=== PATIENT | male | born 1945 | race Caucasian/White ===

== ENCOUNTER → 2019-02-09 18:53 | Outpatient (CLI) | payer MEDICARE, BC, SELFPAY ==
--- NOTE | 2019-02-09 | DI.MRI.S_ITS ---
PROCEDURE: MR CERVICAL SPINE WO CON INDICATIONS: RADCULOPATHY, CERVICAL REGION TECHNIQUE: Noncontrast sagittal T1 spin echo and T2 fast spin echo, sagittal STIR, foraminal oblique sagittal T2 fast spin echo, and axial gradient echo or T2 fast spin echo through the cervical spine. COMPARISON: None. FINDINGS: Image quality: Excellent. Alignment and Curvature: There is grade 1 anterolisthesis of C7 on T1. Bone Marrow: Mottled appearance throughout visualized cervical and upper thoracic spine vertebral bodies are noted. There is extensive marrow edema throughout T1 vertebral body with suggestion of infiltrative process throughout T1 vertebral body extending to the posterior elements. There is acute to subacute appearing compression deformity of T1 and up to 40% loss of T1 vertebral body height anteriorly. No other compression fracture is seen. Spinal Cord: Visualized spinal cord has normal size and signal. No cerebellar tonsillar herniation. Paraspinous Soft Tissues: No paravertebral masses. Prevertebral soft tissues are normal in thickness. C2-C3: Diffuse disc bulge and bilateral facet hypertrophic changes are noted with mild central canal stenosis and mild bilateral neuroforaminal narrowing. C3-C4: Decrease in intervertebral disc space is seen. Broad-based disc bulge and bilateral facet hypertrophic changes are noted causing moderate central canal stenosis and left worst than right bilateral neuroforaminal narrowing. C4-C5: Decrease in intervertebral disc space is seen. A broad-based disc bulge and bilateral facet hypertrophic changes are noted causing moderate central canal stenosis and left worst than right bilateral neuroforaminal narrowing. C5-C6: Decrease intervertebral disc space is seen. A broad-based disc bulge and bilateral facet hypertrophic changes are noted with mild central canal stenosis and left worst than right bilateral neuroforaminal narrowing. C6-C7: There is decreased intervertebral disc space and degenerative endplate changes. Diffuse disc bulge and bilateral facet hypertrophic changes are seen with mild central canal stenosis and bilateral neuroforaminal narrowing. C7-T1: There is retropulsion of T1 vertebral body causing [id number] central canal stenosis. Left worst in right bilateral neuroforaminal narrowing is also likely present. IMPRESSION: 1. Mottled appearance to all visualized cervical and upper thoracic spine vertebral bodies highly suspicious for metastatic bone lesions. There is suggestion of infiltrative process involving entire T1 vertebral body extending to posterior elements causing pathologic fracture of indeterminate age and up to 40% loss of T1 vertebral body height. Retropulsion of T1 posterior wall is seen causing mild to moderate central canal stenosis at this level. 2. No acute compression fracture is seen in cervical spine vertebral bodies. Degenerative disc bulge and bilateral facet hypertrophic changes are noted throughout cervical spine causing moderate to severe central canal stenosis and bilateral neuroforaminal narrowing as described above. 3. There is no Chiari malformation. No abnormal signal is seen within cervical spinal cord. Dictated by: Joseph Worthington M.D. on 02/10/2019 at 10:13 Approved by: Joseph Worthington M.D. on 02/10/2019 at 10:32
== END ==
PROVIDERS: Visit Provider Family Medicine
DX: M50.11 Cervical disc disorder with radiculopathy, high cervical region (principal); M48.02 Spinal stenosis, cervical region; M43.13 Spondylolisthesis, cervicothoracic region; M89.9 Disorder of bone, unspecified
CPT/HCPCS: 72141

== ENCOUNTER → 2019-02-23 10:36 | Outpatient (CLI) | payer MEDICARE, BC, SELFPAY ==
--- NOTE | 2019-02-23 11:23 | DI.CT.S_ITS ---
PROCEDURE: CT CHEST ABD PEL W CON INDICATIONS: Abnormal findings on diagnostic imaging TECHNIQUE: After the administration of oral and intravenous contrast, 5 mm thick sections acquired from the lung apices to the symphysis. 5 mm coronal and sagittal reformats were performed, with additional 7 mm coronal MIP reformats through the lungs. For radiation dose reduction, the following was used: automated exposure control, adjustment of mA and/or kV according to patient size. COMPARISON: [facility], MR, MR CERVICAL SPINE WO CON, 02/09/2019, 19:08. FINDINGS: Image quality: Excellent. CHEST: Lungs and pleura: No acute airspace opacities. No pleural effusions or pneumothorax. Central and peripheral airways appear patent and normal in caliber. Mediastinum: Heart size is normal. No pericardial effusion. No mediastinal or hilar adenopathy by size criteria. Thoracic aorta and central pulmonary arteries are normal in size. Esophagus is normal in caliber. No hiatal hernia. Chest wall: No axillary or supraclavicular adenopathy by size criteria. Thyroid gland appears normal where well seen. There is an osteolytic process involving T1 as seen on the cervical spine MRI 02/09/19. MR scanning shows a greater degree of heterogeneity of the marrow space of the low cervical and upper thoracic spine that is seen by CT scanning. T1 vertebral height reduction is again noted, mild retropulsion of the posterior border of T1 vertebral body into the spinal canal is present. An epidural mass is not associated, but the anterior spinal canal appears mildly distorted by the osseous abnormality present at T1. ABDOMEN: Solid organs: Liver is normal in size and enhancement. Gallbladder appears normal. Biliary system is non dilated. Pancreas enhances normally. Spleen is normal in size and enhancement. No adrenal nodules. Kidneys demonstrate normal size and enhancement, without hydronephrosis. Peritoneum and bowel: Bowel loops demonstrate normal wall thickness and caliber. No free fluid or air. Nodes and vessels: No retroperitoneal or mesenteric adenopathy by size criteria. Aorta and inferior vena cava are normal in size. Miscellaneous: No ventral hernias. PELVIS: Genitourinary: Bladder wall thickness is normal. Miscellaneous: No inguinal hernias or adenopathy. Bones: No suspicious bony lesions beyond that seen at T1. No lower vertebral body compression fractures. IMPRESSION: 1. Marrow space signal heterogeneity is present to a significantly greater degree on MR scanning that is identifiable on CT scanning. This may indicate a generalized marrow space disease process such as multiple myeloma. A focal plasmacytoma may be present at the T1 vertebral body as cause of the osteolytic pathologic compression fracture present in that area. The degree of distortion present at T1 involving the spinal canal and vertebral body has not appreciably worsened over the short. Time from the MR scanning 02/09/19. 2. The marrow space elsewhere an osteolytic process is not found in no primary neoplasm is identified over the chest abdomen and pelvis. A myeloproliferative disorder/neoplasm is considered a likely etiology for the abnormalities discussed above. Depending on the clinical status followup by nuclear medicine bone scan and/or PET CT scanning may be warranted. Dictated by: Pasha Gordillo M.D. on 02/23/2019 at 14:13 Approved by: Pasha Gordillo M.D. on 02/23/2019 at 14:31
== END ==
PROVIDERS: PCP Family Medicine; Visit Provider Family Medicine
DX: R93.7 Abnormal findings on diagnostic imaging of other parts of musculoskeletal system (principal); S22.010A Wedge compression fracture of first thoracic vertebra, initial encounter for closed fracture
CPT/HCPCS: 71260; 74177; Q9967

== ENCOUNTER → 2020-07-30 12:28 | Outpatient (CLI) | payer MEDICARE, BC, SELFPAY ==
[2020-07-30 20:02] LABS: Bacteria Urine None Seen; WBC Urine None Seen (0-5/HPF)
[2020-07-30 20:13] LABS: Appearance Urine UA CLEAR; Bilirubin Urine UA NEGATIVE (NEGATIVE); Color Urine UA YELLOW; Glucose Urine UA TRACE g/dL (Negative); Hematocrit 36.1 % (41-53); Hemoglobin 12.3 g/dL (13.5-17.5); Ketones Urine UA NEGATIVE (NEGATIVE); Leukocyte Esterase Urine UA NEGATIVE (NEGATIVE); Mean Corpuscular HGB Conc 34.1 % (30-36); Mean Corpuscular Hemoglobin 35.9 PG (26-34); Mean Corpuscular Volume 105.1 fL (80-100); Nitrite Urine UA NEGATIVE (Negative); Occult Blood Urine UA 2+ (Negative); Platelet Count 108 X10^3/uL (150-400); Protein Urine UA TRACE (Negative); Red Blood Cell Count 3.44 X10^6/uL (4.5-5.9); Red Cell Distribution Width 15.6 % (11.6-14.8); Urobilinogen Urine UA 0.2 E.U./dL (0.2); White Blood Cell Count 4.3 X10^3/uL (4.5-11.0); pH Urine UA 5.5 (4.5-8.0)
[2020-07-30 20:22] LABS: Alanine Aminotransferase 14 IU/L (<50); Albumin 3.3 g/dL (3.5-5.0); Albumin Globulin Ratio 1.6 (1.0-2.8); Alkaline Phosphatase 74 U/L (38-126); Aspartate Aminotransferase 18 IU/L (17-59); BUN Creatinine Ratio 15.8 (6-22); Bilirubin Total 0.5 mg/dL (0.2-1.3); Blood Urea Nitrogen 19 mg/dL (9-20); Calcium 8.5 mg/dL (8.4-10.2); Carbon Dioxide 23 mmol/L (22-32); Chloride 103 mmol/L (98-107); Estimated Glomerular Filt Rate 59.3 mL/min (>60); Globulin 2.1 g/dL (1.7-4.1); Glucose 122 mg/dL (80-110); HEMOLYSIS < 15 (0-50); Sodium 135 mmol/L (137-145); Total Protein 5.4 g/dL (6.3-8.2)
[2020-07-30 20:33] LABS: Hyaline Casts Urine 1-5/LPF; RBC Urine 1-5/HPF (0-5/HPF); Squamous Epithelial Cell Urine 0-1 /HPF (0-5/HPF)
[2020-07-30 21:09] LABS: Neutrophils Absolute Manual 2451 /uL (3000-5900); Total Cells Counted 100
[2020-07-30 21:10] LABS: Macrocytosis 1+; Platelet Estimate Decreased on smear; Platelet Morphology Comment NOTE
[2020-07-30 21:17] LABS: COVID19 - ORCAS (NP or Nasal) Negative (Negative)
== END ==
PROVIDERS: PCP Family Medicine; Visit Provider Physician Assistant
DX: R50.9 Fever, unspecified (principal); Z20.822 Contact with and (suspected) exposure to COVID-19; R31.9 Hematuria, unspecified; R35.1 Nocturia
CPT/HCPCS: 80053; 81001; 85025; U0003

== ENCOUNTER → 2020-08-01 08:36 | Outpatient (CLI) | payer MEDICARE, BC, SELFPAY ==
[2020-08-01 20:14] LABS: Hematocrit 37.3 % (41-53); Hemoglobin 12.7 g/dL (13.5-17.5); Mean Corpuscular HGB Conc 34.1 % (30-36); Mean Corpuscular Hemoglobin 35.7 PG (26-34); Mean Corpuscular Volume 104.9 fL (80-100); Platelet Count 124 X10^3/uL (150-400); Red Blood Cell Count 3.56 X10^6/uL (4.5-5.9); Red Cell Distribution Width 15.8 % (11.6-14.8); White Blood Cell Count 5.1 X10^3/uL (4.5-11.0)
[2020-08-01 20:18] LABS: Add Manual Diff / Slide Review YES
[2020-08-01 20:19] LABS: Alanine Aminotransferase 19 IU/L (<50); Albumin 3.7 g/dL (3.5-5.0); Albumin Globulin Ratio 1.7 (1.0-2.8); Alkaline Phosphatase 79 U/L (38-126); Aspartate Aminotransferase 21 IU/L (17-59); Bilirubin Total 0.5 mg/dL (0.2-1.3); Blood Urea Nitrogen 24 mg/dL (9-20); Calcium 8.7 mg/dL (8.4-10.2); Carbon Dioxide 25 mmol/L (22-32); Chloride 102 mmol/L (98-107); Estimated Glomerular Filt Rate 59.3 mL/min (>60); Globulin 2.2 g/dL (1.7-4.1); Glucose 109 mg/dL (80-110); HEMOLYSIS < 15 (0-50); Potassium 4.3 mmol/L (3.4-5.1); Sodium 137 mmol/L (137-145); Total Protein 5.9 g/dL (6.3-8.2)
[2020-08-01 20:53] LABS: Neutrophils Absolute Manual 3315 /uL (3000-5900); Platelet Estimate Decreased on smear; Total Cells Counted 100
[2020-08-01 20:54] LABS: Macrocytosis 1+
== END ==
PROVIDERS: PCP Family Medicine; Visit Provider Physician Assistant
DX: R50.9 Fever, unspecified (principal); C90.00 Multiple myeloma not having achieved remission
CPT/HCPCS: 80053; 85007; 85025; 87086

== ENCOUNTER → 2020-08-02 10:18 | Outpatient (CLI) | payer MEDICARE, OTHER, SELFPAY ==
[2020-08-06 14:23] LABS: Fecal Immunochemical Test Negative (Negative)
== END ==
PROVIDERS: PCP Family Medicine; Visit Provider Physician Assistant
DX: R79.9 Abnormal finding of blood chemistry, unspecified (principal)
CPT/HCPCS: 82274

== ENCOUNTER 2020-08-02 15:06 | Inpatient (IN) | payer MEDICARE, BC, SELFPAY ==
[2020-08-02] VITALS (12 sets, daily range): BP systolic 113–180; BP diastolic 57–78; PULSE 76–103; RESP 12–24; TEMP 36.8–38.7; O2SAT 95–98; BMI 24.3
--- NOTE | 2020-08-02 15:30 | ED_ITS ---
HPI - General Adult General Chief complaint: Fever Stated complaint: COUGH FEVER Time Seen by Provider: 08/02/20 15:30 Source: patient Mode of arrival: Ambulatory History of Present Illness HPI narrative: 75-year-old gentleman with a history of multiple myeloma who is 9 months post stem cell transplant. He continues on Revlimid for treatment. He is followed at the [facility] in [place]. For the last 6 days he has been having increasing fatigue, myalgias and fevers. He has had a mild cough with increasing sputum production over the last 48 hours. Fevers as high as 104. Today there were reports of slightly altered mental status. They were seen on [facility] yesterday he has had 2-urine samples, negative COVID test and negative strep test. He was started on Levaquin p.o. yesterday and has taken a single dose. Today he continues to worsen with again, fevers to 104?. He presents to the ER for further evaluation. He reports no headache, neck pain, palpitations, chest pain, abdominal pain, lower extremity edema. No diarrhea and no skin changes to worry about cellulitis. Related Data Previous Rx's Medication Instructions Recorded levofloxacin 500 mg tablet 500 mg PO DAILY #7 tab 08/01/20 Allergies Allergy/AdvReac Type Severity Reaction Status Date / Time No Known Drug Allergies Allergy Unverified 08/02/20 15:25 Review of Systems Review of Systems Narrative: Remainder of review is unremarkable Patient History Medical History Anticoagulated Hypertension Multiple myeloma Social History Smoking Status: Former smoker Smoking Status: Former smoker alcohol intake frequency: 3 or more drinks per day Substance Use Type: does not use Exam Narrative Exam Narrative: General: Flushed but in no acute distress. Able to give a complete and coherent history. Well-nourished well-developed HEENT: Moist mucous membranes, normal sclera with reactive pupils, Neck: No JVD, supple, no nuchal rigidity Respiratory: Lungs with increased rhonchi in the left lung field without overt consolidated findings or wheeze. Full and symmetrical air movement Cardiac: Regular rate and rhythm, 3/6 systolic ejection murmur, no bruits Abdomen: Soft, nontender, good bowel tones, no flank pain Skin: Warm and dry, no rashes Neurologic: Grossly neurologically intact with no obvious asymmetries or ab normalities Extremities: No trauma, well perfused Psych: Cooperative, appropriate insight and affect Initial Vital Signs Initial Vital Signs: Vital Signs Temperature 101.7 F H 08/02/20 15:21 Pulse Rate 103 H 08/02/20 15:21 Respiratory Rate 12 08/02/20 15:21 Blood Pressure 180/78 H 08/02/20 15:21 Pulse Oximetry 98 08/02/20 15:21 Course Orders Ordered: ED Orders 08/02/20 15:31 XR chest 1V Stat Urinalysis and Microscopic Stat 08/02/20 15:35 Respiratory Panel (Film Array) Stat 08/02/20 16:02 Blood Culture Stat 08/02/20 16:07 Complete Blood Count AUTO DIFF Stat Comprehensive Metabolic Panel Stat Lactate (Lactic Acid) Stat Procalcitonin Stat Troponin & CK Cardiac Panel Stat 08/02/20 16:15 EKG-12 Lead Stat Discontinued Medications Acetaminophen (Acetaminophen 325 Mg Tablet) 975 mg PO NOW ONE Stop: 08/02/20 15:32 Last Admin: 08/02/20 15:52 Dose: 975 mg Documented by: NAVEEN Sodium Chloride (Normal Saline 0.9%) 2,245.29 mls @ 748.43 mls/hr 30 ml/kg infuse over 3 hr (2245.29 ml) IV NOW ONE Stop: 08/02/20 18:30 Last Admin: 08/02/20 16:11 Dose: 748.43 mls/hr Documented by: NAVEEN Meropenem 1 gm/ Sodium (Chloride) 100 mls @ 200 mls/hr IV NOW ONE Stop: 08/02/20 15:32 Last Infusion: 08/02/20 16:50 Dose: 0 mls/hr Documented by: Admin: 08/02/20 16:15 Dose: 200 mls/hr Documented by: NAVEEN Vancomycin HCl (Vancomycin) 1,000 mg in 200 mls @ 200 mls/hr IV NOW ONE Stop: 08/02/20 16:30 Last Infusion: 08/02/20 18:15 Dose: 0 mls/hr Documented by: Admin: 08/02/20 16:48 Dose: 200 mls/hr Documented by: NAVEEN Vital Signs Vital signs: Vital Signs - 8 hr 08/02/20 15:21 08/02/20 16:18 08/02/20 16:21 Temperature 101.7 F H Pulse Rate 103 H 99 H 96 H Respiratory Rate 12 24 20 Blood Pressure 180/78 H 128/60 Pulse Oximetry 98 98 98 08/02/20 16:30 08/02/20 17:00 08/02/20 17:30 Temperature Pulse Rate 88 78 76 Respiratory Rate 24 24 Blood Pressure 118/59 L 113/60 116/57 L Pulse Oximetry 97 97 97 08/02/20 18:00 08/02/20 18:13 Temperature 98.3 F Pulse Rate 76 Respiratory Rate Blood Pressure 121/61 Pulse Oximetry 97 Medical Decision Making Medical Records Medical records reviewed: Yes I reviewed the patient's medical records. Lab Data Lab results reviewed: Yes I reviewed the patient's lab results. Result diagrams: 08/02/20 16:07 08/02/20 16:07 Labs: Lab Results 08/02/20 08/02/20 08/02/20 Range/Units 15:35 16:07 16:07 WBC 3.4 L (4.5-11.0) X10^3/uL RBC 3.57 L (4.5-5.9) X10^6/uL Hgb 12.5 L (13.5-17.5) g/dL Hct 37.3 L (41-53) % MCV 104.7 H (80-100) fL MCH 35.0 H (26-34) PG MCHC 33.4 (30-36) % RDW 15.2 H (11.6-14.8) % Plt Count 111 L (150-400) X10^3/uL Neut % (Auto) 67.5 (50-75) % Lymph % (Auto) 20.8 L (25-40) % Orange % (Auto) 10.8 (3-14) % Eos % (Auto) 0.5 L (2-4) % Baso % (Auto) 0.4 (0-2) % Neut # (Auto) 2300 (0098-1864) /uL Lymph # (Auto) 700 L (0877-7383) /uL Orange # (Auto) 400 (0-900) /uL Eos # (Auto) 0 (0-450) /uL Baso # (Auto) 0 (0-100) /uL Sodium 134 L (137-145) mmol/L Potassium 3.8 (3.4-5.1) mmol/L Chloride 102 (98-107) mmol/L Carbon Dioxide 23 (22-32) mmol/L BUN 23 H (9-20) mg/dL Creatinine 1.24 (0.66-1.25) mg/dL Estimated GFR 57.1 L (>60) mL/min BUN/Creatinine Ratio 18.5 (6-22) Glucose 107 (80-110) mg/dL Lactate (0.7-2.1) mmol/L Calcium 8.2 L (8.4-10.2) mg/dL Total Bilirubin 0.4 (0.2-1.3) mg/dL AST 22 (17-59) IU/L ALT 23 (<50) IU/L Alkaline Phosphatase 84 (38-126) U/L Total Creatine Kinase 25 L (55-170) U/L CK-MB (CK-2) TNP CK-MB (CK-2) Rel Index TNP Troponin I < 0.012 (0.01-0.034) ng/mL Total Protein 6.2 L (6.3-8.2) g/dL Albumin 3.5 (3.5-5.0) g/dL Globulin 2.7 (1.7-4.1) g/dL Albumin/Globulin Ratio 1.3 (1.0-2.8) Procalcitonin 0.29 (<0.5) ng/mL Chlamy pneumoniae PCR Not detected (Not Detect) Adenovirus (PCR) Not detected (Not Detect) B. pertussis DNA (PCR) Not detected (Not Detecte) B.parapertussis DNA PCR Not detected (Not Detecte) Coronavirus OC43 (PCR) Not detected (Not Detect) Coronavirus HKU1 (PCR) Not detected (Not Detect) Coronavirus 229E (PCR) Not detected (Not Detect) SARS-CoV-2 (PCR) Not detected (Not Detecte) Coronavirus NL63 (PCR) Not detected (Not Detect) Human Metapneumovir PCR Not detected (Not Detect) Influenza Type A (PCR) Not detected (Not Detect) Influenza Type B (PCR) Not detected (Not Detect) M. pneumoniae (PCR) Not detected (Not Detect) Parainfluenza 1 (PCR) Not detected (Not Detect) Parainfluenza 2 (PCR) Not detected (Not Detect) Parainfluenza 3 (PCR) Not detected (Not Detect) Parainfluenza 4 (PCR) Not detected (Not Detect) RSV (PCR) Not detected (Not Detect) Entero/Rhino (PCR) Not detected (Not Detect) 08/02/20 Range/Units 16:07 WBC (4.5-11.0) X10^3/uL RBC (4.5-5.9) X10^6/uL Hgb (13.5-17.5) g/dL Hct (41-53) % MCV (80-100) fL MCH (26-34) PG MCHC (30-36) % RDW (11.6-14.8) % Plt Count (150-400) X10^3/uL Neut % (Auto) (50-75) % Lymph % (Auto) (25-40) % Orange % (Auto) (3-14) % Eos % (Auto) (2-4) % Baso % (Auto) (0-2) % Neut # (Auto) (3515-5879) /uL Lymph # (Auto) (1069-8051) /uL Orange # (Auto) (0-900) /uL Eos # (Auto) (0-450) /uL Baso # (Auto) (0-100) /uL Sodium (137-145) mmol/L Potassium (3.4-5.1) mmol/L Chloride (98-107) mmol/L Carbon Dioxide (22-32) mmol/L BUN (9-20) mg/dL Creatinine (0.66-1.25) mg/dL Estimated GFR (>60) mL/min BUN/Creatinine Ratio (6-22) Glucose (80-110) mg/dL Lactate 1.3 (0.7-2.1) mmol/L Calcium (8.4-10.2) mg/dL Total Bilirubin (0.2-1.3) mg/dL AST (17-59) IU/L ALT (<50) IU/L Alkaline Phosphatase (38-126) U/L Total Creatine Kinase (55-170) U/L CK-MB (CK-2) CK-MB (CK-2) Rel Index Troponin I (0.01-0.034) ng/mL Total Protein (6.3-8.2) g/dL Albumin (3.5-5.0) g/dL Globulin (1.7-4.1) g/dL Albumin/Globulin Ratio (1.0-2.8) Procalcitonin (<0.5) ng/mL Chlamy pneumoniae PCR (Not Detect) Adenovirus (PCR) (Not Detect) B. pertussis DNA (PCR) (Not Detecte) B.parapertussis DNA PCR (Not Detecte) Coronavirus OC43 (PCR) (Not Detect) Coronavirus HKU1 (PCR) (Not Detect) Coronavirus 229E (PCR) (Not Detect) SARS-CoV-2 (PCR) (Not Detecte) Coronavirus NL63 (PCR) (Not Detect) Human Metapneumovir PCR (Not Detect) Influenza Type A (PCR) (Not Detect) Influenza Type B (PCR) (Not Detect) M. pneumoniae (PCR) (Not Detect) Parainfluenza 1 (PCR) (Not Detect) Parainfluenza 2 (PCR) (Not Detect) Parainfluenza 3 (PCR) (Not Detect) Parainfluenza 4 (PCR) (Not Detect) RSV (PCR) (Not Detect) Entero/Rhino (PCR) (Not Detect) Imaging Data Chest x-ray: Radiologist's Impression: FINDINGS: Surgical changes and devices: None. Lungs and pleura: Left lower lobe infiltrate, increased since 08/01/2020, consistent with worsening of pneumonia. No pleural effusions or pneumothorax. Mediastinum: Mediastinal contours appear normal. Heart size is normal. Bones and chest wall: No suspicious bony lesions. Overlying soft tissues appear unremarkable. IMPRESSION: Worsening of left lower lobe pneumonia. Dictated by: Juan Carlos Hernandez M.D. on 08/02/2020 at 17:20 ECG Data Attestation: I personally reviewed and interpreted this ECG as follows: Interpretation: Sinus rhythm at 95 Occasional PVC Normal axis, normal intervals No acute ischemic changes MDM Narrative Medical decision making narrative: 75-year-old gentleman with multiple myeloma status post stem cell transplant currently on immune suppression with developing pneumonia and fevers worsening over the last week. Chest x-ray has worsened from yesterday, fevers have increased since yesterday. He started a single dose of Levaquin yesterday but came in to the emergency department for additional evaluation. He is not hypoxic but he does note significant fatigue, cough, dyspnea. At this point he is not evidencing signs of sepsis however certainly at risk for such and with temperatures to 104 and progressive disease despite outpatient treatment at least 24-48 hours of IV antibiotics is warranted. Will contact our hospitalist service for admission. 6:42 Dr Mariee accepts admission Discharge Plan Departure Patient Disposition: Admitted As Inpatient Clinical Impression: Pneumonia Qualifiers: Pneumonia type: due to unspecified organism Laterality: left Lung location: lower lobe of lung Qualified Code(s): J18.9 - Pneumonia, unspecified organism Admit Date/Time: 08/02/20 18:18 Admit Provider: Abelardo Mariee
--- NOTE | 2020-08-02 15:31 | DI.RAD.S_ITS ---
PROCEDURE: XR CHEST 1V INDICATIONS: fever TECHNIQUE: One view of the chest was acquired. COMPARISON: [facility], CT, CT CHEST ABD PEL W CON, 02/23/2019, 11:37. [facility] ([facility]), CR, XR CHEST 2V, 08/01/2020, 12:06. FINDINGS: Surgical changes and devices: None. Lungs and pleura: Left lower lobe infiltrate, increased since 08/01/2020, consistent with worsening of pneumonia. No pleural effusions or pneumothorax. Mediastinum: Mediastinal contours appear normal. Heart size is normal. Bones and chest wall: No suspicious bony lesions. Overlying soft tissues appear unremarkable. IMPRESSION: Worsening of left lower lobe pneumonia. Dictated by: Juan Carlos Hernandez M.D. on 08/02/2020 at 17:20 Approved by: Juan Carlos Hernandez M.D. on 08/02/2020 at 17:21
[2020-08-02] MEDS: ACETAMINOPHEN 325 MG TABLET 975 MG PO (15:52)
[2020-08-02] MEDS: SODIUM CHLORIDE 0.9% 2,245.29 ML 748.43 ML IV (16:11)
[2020-08-02] MEDS: MEROPENEM 1 GM in SODIUM CHLORIDE 0.9% 100 ML 200 ML IV (16:15)
[2020-08-02 16:20] LABS: Add Manual Diff / Slide Review NO; Basophils Absolute Auto 0 /uL (0-100); Basophils Percent Auto 0.4 % (0-2); Eosinophils Absolute Auto 0 /uL (0-450); Eosinophils Percent Auto 0.5 % (2-4); Hematocrit 37.3 % (41-53); Hemoglobin 12.5 g/dL (13.5-17.5); Lymphocytes Absolute Auto 700 /uL (1100-4500); Lymphocytes Percent Auto 20.8 % (25-40); Mean Corpuscular HGB Conc 33.4 % (30-36); Mean Corpuscular Volume 104.7 fL (80-100); Monocytes Absolute Auto 400 /uL (0-900); Monocytes Percent Auto 10.8 % (3-14); Neutrophils Absolute Auto 2300 /uL (1500-7000); Neutrophils Percent Auto 67.5 % (50-75); Platelet Count 111 X10^3/uL (150-400); Red Blood Cell Count 3.57 X10^6/uL (4.5-5.9); Red Cell Distribution Width 15.2 % (11.6-14.8); White Blood Cell Count 3.4 X10^3/uL (4.5-11.0)
[2020-08-02 16:30] LABS: Lactate (Lactic Acid) 1.3 mmol/L (0.7-2.1)
[2020-08-02 16:31] LABS: Alanine Aminotransferase 23 IU/L (<50); Albumin 3.5 g/dL (3.5-5.0); Albumin Globulin Ratio 1.3 (1.0-2.8); Alkaline Phosphatase 84 U/L (38-126); Aspartate Aminotransferase 22 IU/L (17-59); BUN Creatinine Ratio 18.5 (6-22); Bilirubin Total 0.4 mg/dL (0.2-1.3); Blood Urea Nitrogen 23 mg/dL (9-20); Calcium 8.2 mg/dL (8.4-10.2); Carbon Dioxide 23 mmol/L (22-32); Chloride 102 mmol/L (98-107); Creatine Kinase 25 U/L (55-170); Estimated Glomerular Filt Rate 57.1 mL/min (>60); Globulin 2.7 g/dL (1.7-4.1); Glucose 107 mg/dL (80-110); HEMOLYSIS < 15 (0-50); Potassium 3.8 mmol/L (3.4-5.1); Sodium 134 mmol/L (137-145); Total Protein 6.2 g/dL (6.3-8.2)
[2020-08-02 16:42] LABS: Adenovirus Not Detected (Not Detect); Coronavirus 229E Not Detected (Not Detect); Coronavirus HKU1 Not Detected (Not Detect); Coronavirus NL 63 Not Detected (Not Detect); Coronavirus OC43 Not Detected (Not Detect); Human Metapneumovirus Not Detected (Not Detect); Human Rhinovirus/Enterovirus Not Detected (Not Detect); Influenza A Not Detected (Not Detect); SARS- CoV-2 Not Detected (Not Detecte)
[2020-08-02 16:43] LABS: Troponin I < 0.012 ng/mL (0.01-0.034)
[2020-08-02 16:43] LABS: B. parapertussis Not Detected (Not Detecte); Bordetella pertussis Not Detected (Not Detecte); Chlamydophila pneumoniae Not Detected (Not Detect); Influenza B Not Detected (Not Detect); Mycoplasma pneumoniae Not Detected (Not Detect); Parainfluenza Virus 1 Not Detected (Not Detect); Parainfluenza Virus 2 Not Detected (Not Detect); Parainfluenza Virus 3 Not Detected (Not Detect); Parainfluenza Virus 4 Not Detected (Not Detect); Respiratory Syncytial Virus Not Detected (Not Detect)
[2020-08-02 16:48] LABS: Procalcitonin 0.29 ng/mL (<0.5)
[2020-08-02] MEDS: VANCOMYCIN 1,000 MG/200 ML PIGGYBACK 200 MG IV (16:48)
[2020-08-02 19:42] LABS: Bacteria Urine None Seen
[2020-08-02 19:48] LABS: Appearance Urine UA CLEAR; Bilirubin Urine UA NEGATIVE (NEGATIVE); Color Urine UA YELLOW; Glucose Urine UA NEGATIVE (Negative); Ketones Urine UA NEGATIVE (NEGATIVE); Leukocyte Esterase Urine UA NEGATIVE (NEGATIVE); Nitrite Urine UA NEGATIVE (Negative); Occult Blood Urine UA 2+ (Negative); Protein Urine UA TRACE (Negative); Urobilinogen Urine UA 0.2 E.U./dL (0.2); pH Urine UA 5.5 (4.5-8.0)
[2020-08-02 19:54] LABS: Amorphous Sediment Urine 1+; RBC Urine 1-5/HPF (0-5/HPF); Squamous Epithelial Cell Urine 0-1 /HPF (0-5/HPF); WBC Urine 0-1/HPF (0-5/HPF)
[2020-08-02 19:55] LABS: Culture Indicated Urine Cult Not Indicated
[2020-08-02] MEDS: CEFTRIAXONE 2 GM/50 ML FROZ.PIGGY IV (20:40)
--- NOTE | 2020-08-02 21:33 | RT ---
Pt admitted for CAP. Assessed pt at 2049. Pt is on RA, SpO2 97%, BS clear with diminished LLL. Pt has no respiratory hx besides being a former smoker. Pt doesn't take respiratory meds at home but does has his home CPAP in the room. Will instruct pt on Acapella and IS.
[2020-08-02] MEDS: AZITHROMYCIN 500 MG in DEXTROSE 5% IN WATER 250 ML IV (21:38)
--- NOTE | 2020-08-02 21:41 | PM.HP.1 ---
History of Present Illness History of Present Illness Date Patient Seen: 08/02/20 Time Patient Seen: 20:03 Chief complaint: COUGH FEVER Narrative: Mr. Donn Crystal is a 75-year-old male with past medical history significant for multiple myeloma (on oral chemotherapy), status post stem cell transplant, anticoagulated on apixaban, hypertension and nocturia who is sent to the emergency department with worsening cough, fevers chills and rigors. The patient has been seen at the [facility] with complaints of worsening symptoms over 6 days. Patient presented to the clinic for evaluation on 07/29 at which time was complaining of urinary tract symptoms with fever increased urination. The patient returned on 08/01 with increasing cough that is productive, fatigue, myalgias and fevers. He is started on Levaquin of which the patient has taken 1 dose. Today the patient is sent to the [facility] ER further evaluation with increasingly productive cough a fever 100 for and shaking rigors. The patient denies complaints of headaches or dizziness, nasal congestion or sore throat. He has had fevers and chills and now developed rigors. He denies complaints of chest pain or palpitations, he does endorse a history of heart murmur having had multiple echocardiograms. Reports no exertional dyspnea or shortness of breath at rest, only a persistent nagging productive cough. He denies pedis closing pulmonary disease and has had no wheezing. He endorses poor appetite with 5 lb weight loss in the last week. He denies epigastric or abdominal pain and has no nausea vomiting and denies constipation diarrhea. Patient has had frequent urination recently at night in small voids and denies hematuria urgency or burning. Upon arrival to the ER the patient's temperature 101.7?, heart rate of 103, blood pressure 180/78, respirations 12 saturating 98% on room air. Chest x-ray is obtained in the emergency department which shows worsening left lower lobe pneumonia when compared to film of 08/01/2020. Twelve lead EKG finds sinus rhythm rate of 95 with PACs, left atrial enlargement biphasic P-wave in V1 without ST or T-wave changes or evidence of infarct. Patient has low white count 3.4, hemoglobin of 12.5, hematocrit of 37.3 platelets 111. Is borderline sodium 134 with potassium 3.8. He is BUN is 23 with a creatinine at 1.24. His nonfasting glucose is 107. His liver functions are all with within normal limits with an albumin of 3.5. His lactic acid is 1.3 with procalcitonin 0.28. Total CK is 25 and troponin is less than 0.012. Respiratory PCR panel is negative. His COVID-19 screening is negative. In the ER the patient received a sepsis bolus of IV fluid receiving over 2300 mils, Tylenol 975, meropenem and vancomycin. The patient is admitted to the hospital with community-acquired pneumonia in an immunocompromised patient. Patient History Medical History (Updated 08/02/20 @ 22:08 by STEVAN Cantu) Anticoagulated Frequent urination at night Hypertension Multiple myeloma Surgical History (Updated 08/02/20 @ 22:08 by STEVAN Cantu) History of stem cell transplant History of tonsillectomy Family & Social History Family History (Updated 08/02/20 @ 22:09 by STEVAN Cantu) Father Alcohol abuse Mother Cancer Brother Cancer Social History: household members spouse Prior Living Arrangements House Safety & Behavioral: Feels Safe in Current Yes Environment Been Physically Hurt or No Threatened By a Person Suicidal Ideation Description None Suicide Plan Description No Plan Tobacco & Substance use: Smoking Status Former smoker alcohol intake current alcohol intake frequency 3 or more drinks per day Substance Use Type does not use Meds Home Medications and Allergies Home Medications Medication Instructions Recorded Confirmed Type levofloxacin 500 mg tablet 500 mg PO DAILY #7 tab 08/01/20 08/02/20 Rx amlodipine 10 mg PO QAM 08/02/20 08/02/20 History apixaban [Eliquis] 5 mg PO QAM 08/02/20 08/02/20 History gabapentin 300 mg PO QPM 08/02/20 08/02/20 History lenalidomide [Revlimid] 10 mg PO QPM 08/02/20 08/02/20 History valacyclovir 500 mg PO QPM 08/02/20 08/02/20 History Allergies Allergy/AdvReac Type Severity Reaction Status Date / Time No Known Drug Allergies Allergy Unverified 08/02/20 15:25 Review of Systems Review of Systems ROS: Yes All systems reviewed with the patient and are negative except as otherwise documented Exam Vital Signs (past 8 hours): - 08/02/20 15:21 08/02/20 16:18 08/02/20 16:21 Temperature 101.7 F H Pulse Rate 103 H 99 H 96 H Respiratory Rate 12 24 20 Blood Pressure 180/78 H 128/60 Pulse Oximetry 98 98 98 08/02/20 16:30 08/02/20 17:00 08/02/20 17:30 Temperature Pulse Rate 88 78 76 Respiratory Rate 24 24 Blood Pressure 118/59 L 113/60 116/57 L Pulse Oximetry 97 97 97 08/02/20 18:00 08/02/20 18:13 08/02/20 18:30 Temperature 98.3 F Pulse Rate 76 79 Respiratory Rate 20 Blood Pressure 121/61 Pulse Oximetry 97 97 08/02/20 18:31 08/02/20 19:00 08/02/20 20:50 Temperature 98.6 F Pulse Rate 83 88 79 Respiratory Rate 22 18 16 Blood Pressure 114/66 145/57 H Pulse Oximetry 96 95 97 Oxygen Delivery Method Room Air Narrative Exam Narrative: GENERAL APPEARANCE: well developed, well nourished, lying right lateral in bed, in no acute distress. HEENT: Normocephalic, PERRLA, conjunctiva clear, EOMs intact without nystagmus, no rhinorrhea, mucous membranes are moist and pink without lesions or exudate. NECK/THYROID: neck supple, no JVD, no thyromegaly, trachea midline. LYMPH NODES: no cervical or supraclavicular lymphadenopathy. SKIN: [place], warm and dry, no visible lesions, rashes, ulcerations or petechiae. HEART: regular rate and rhythm, S1-S2, 1/6 systolic murmur left midsternal border, no rubs or gallops, brisk capillary refill, no edema LUNGS: Breath sounds globally diminished with crackles left base, no cough find he has been inspiration. CHEST: Symmetrical movement, no accessory muscle use, good tidal volume, no pain on AP or lateral compression, speaking in full sentences. ABDOMEN: Soft, no distention, no abdominal tenderness, no guarding or peritoneal signs, no organomegaly, no flank or suprapubic tenderness, active bowel tones. BACK: Normal curvature, nontender to palpation, no CVA tenderness on percussion EXTREMITIES: moves all extremities, strength is 5/5 and symmetrical, no deformities or joint effusions no clubbing or cyanosis NEUROLOGIC: AAO x4, no focal neurologic deficits, cranial nerves II-XII grossly intact, sensation intact to light touch, hearing grossly normal to speech. PSYCH: Good judgment, good insight, linear thought process, cooperative, appropriate with stable behavior Objective Labs Result Diagrams: 08/02/20 16:07 08/02/20 16:07 Labs: Laboratory Results - last 24 hr 08/02/20 08/02/20 08/02/20 15:35 16:02 16:07 WBC 3.4 L RBC 3.57 L Hgb 12.5 L Hct 37.3 L MCV 104.7 H MCH 35.0 H MCHC 33.4 RDW 15.2 H Plt Count 111 L Neut % (Auto) 67.5 Lymph % (Auto) 20.8 L [place] % (Auto) 10.8 Eos % (Auto) 0.5 L Baso % (Auto) 0.4 Neut # (Auto) 2300 Lymph # (Auto) 700 L [place] # (Auto) 400 Eos # (Auto) 0 Baso # (Auto) 0 Sodium Potassium Chloride Carbon Dioxide BUN Creatinine Estimated GFR BUN/Creatinine Ratio Glucose Lactate Calcium Magnesium 2.0 Total Bilirubin AST ALT Alkaline Phosphatase Total Creatine Kinase CK-MB (CK-2) CK-MB (CK-2) Rel Index Troponin I Total Protein Albumin Globulin Albumin/Globulin Ratio Procalcitonin Urine Color Urine Appearance Urine pH Ur Specific [place] Urine Protein Urine Glucose (UA) Urine Ketones Urine Occult Blood Urine Nitrate Urine Bilirubin Urine Urobilinogen Ur Leukocyte Esterase Urine RBC Urine WBC Ur Squamous Epith Cells Amorphous Sediment Urine Bacteria Ur Culture Indicated? Chlamy pneumoniae PCR Not detected Adenovirus (PCR) Not detected B. pertussis DNA (PCR) Not detected B.parapertussis DNA PCR Not detected Coronavirus OC43 (PCR) Not detected Coronavirus HKU1 (PCR) Not detected Coronavirus 229E (PCR) Not detected SARS-CoV-2 (PCR) Not detected Coronavirus NL63 (PCR) Not detected Human Metapneumovir PCR Not detected Influenza Type A (PCR) Not detected Influenza Type B (PCR) Not detected M. pneumoniae (PCR) Not detected Parainfluenza 1 (PCR) Not detected Parainfluenza 2 (PCR) Not detected Parainfluenza 3 (PCR) Not detected Parainfluenza 4 (PCR) Not detected RSV (PCR) Not detected Entero/Rhino (PCR) Not detected 08/02/20 08/02/20 08/02/20 16:07 16:07 19:40 WBC RBC Hgb Hct MCV MCH MCHC RDW Plt Count Neut % (Auto) Lymph % (Auto) [place] % (Auto) Eos % (Auto) Baso % (Auto) Neut # (Auto) Lymph # (Auto) [place] # (Auto) Eos # (Auto) Baso # (Auto) Sodium 134 L Potassium 3.8 Chloride 102 Carbon Dioxide 23 BUN 23 H Creatinine 1.24 Estimated GFR 57.1 L BUN/Creatinine Ratio 18.5 Glucose 107 Lactate 1.3 Calcium 8.2 L Magnesium Total Bilirubin 0.4 AST 22 ALT 23 Alkaline Phosphatase 84 Total Creatine Kinase 25 L CK-MB (CK-2) TNP CK-MB (CK-2) Rel Index TNP Troponin I < 0.012 Total Protein 6.2 L Albumin 3.5 Globulin 2.7 Albumin/Globulin Ratio 1.3 Procalcitonin 0.29 Urine Color Yellow Urine Appearance Clear Urine pH 5.5 Ur Specific [place] 1.020 Urine Protein Trace H Urine Glucose (UA) Negative Urine Ketones Negative Urine Occult Blood 2+ H Urine Nitrate Negative Urine Bilirubin Negative Urine Urobilinogen 0.2 Ur Leukocyte Esterase Negative Urine RBC 1-5/hpf Urine WBC 0-1/hpf Ur Squamous Epith Cells 0-1 /hpf Amorphous Sediment 1+ Urine Bacteria None seen Ur Culture Indicated? Cult not indicated Chlamy pneumoniae PCR Adenovirus (PCR) B. pertussis DNA (PCR) B.parapertussis DNA PCR Coronavirus OC43 (PCR) Coronavirus HKU1 (PCR) Coronavirus 229E (PCR) SARS-CoV-2 (PCR) Coronavirus NL63 (PCR) Human Metapneumovir PCR Influenza Type A (PCR) Influenza Type B (PCR) M. pneumoniae (PCR) Parainfluenza 1 (PCR) Parainfluenza 2 (PCR) Parainfluenza 3 (PCR) Parainfluenza 4 (PCR) RSV (PCR) Entero/Rhino (PCR) Assessment & Plan Assessment & Plan narrative: 75-year-old male with past medical history significant for multiple myeloma (on oral chemotherapy), status post stem cell transplant, anticoagulated on apixaban, hypertension and nocturia who is sent to the emergency department with worsening cough, fevers chills and rigors is found to have worsening left lower lobe pneumonia. 1. Community-acquired bacterial pneumonia, left lower lobe, present on admission, active. -patient is referred from [facility] with worsening symptoms today developing fever of 104 and rigors. Patient without shortness of breath, exertional dyspnea or tachypnea. -chest x-ray finds worsening left lower lobe pneumonia compared to image of 08/01/2020. -white count is 3.4 without shift, procalcitonin is 0.29, lactic acid is 3.1. Respiratory PCR panel is negative. -in the ER the patient received meropenem vancomycin which is changed to azithromycin 500 mg IV daily for 3 days and ceftriaxone 2 g IV daily. -blood cultures have been drawn prior to antibiotics, ordered sputum sample. -will recheck CBC and procalcitonin in the morning. 2. Hypertension, chronic, stable -patient with initial hypertension upon arrival 180/78 improving to 120s over 60s. -will continue patient's routine home regimen of amlodipine 10 mg daily. 3. Multiple myeloma, chronic, stable. -white count is 3.4, no elevation neutrophils, mild low lymphocytes at 700. -will continue patient's oral chemotherapeutic revilimid 10 mg. -patient is on chemotherapy precautions. VTE prophylaxis: Enoxaparin. IV fluid: Patient received sepsis bolus in the ER in is saline locked. Diet: Heart healthy Code status: Full code, patient designates his Kristine to be surrogate decision maker The patient is admitted to the hospital due to the progression of his symptoms and immunocompromised state on chemotherapy requiring IV antibiotics and close monitoring to prevent complications or adverse events. The patient is admitted as an inpatient with expected length of stay to be greater than 2 midnights. COVID-19 COVID-19 status: Negative Result date/Date tested (Pos, Neg/Pending): 08/02/20 Scores GCS Kh[place]boo coma scale eye opening: Spontaneous Ethel coma scale verbal response: Orientated [place]boo coma scale motor response: Obey commands Ethel coma scale total score: 15 Quality MIPS - Admit I confirm the patient?s Advance Care Plan is present, Code status is documented, Surrogate decision maker is in patient?s record [If Yes, STOP here]: Yes
[2020-08-03] VITALS: BP 128/74; PULSE 78; RESP 18; TEMP 37.3; O2SAT 99
[2020-08-03 05:30] VITALS: BP 100/86; PULSE 69; RESP 18; TEMP 37.2; O2SAT 99
[2020-08-03 06:03] LABS: Blood Urea Nitrogen 17 mg/dL (9-20); Calcium 7.6 mg/dL (8.4-10.2); Carbon Dioxide 21 mmol/L (22-32); Chloride 107 mmol/L (98-107); Estimated Glomerular Filt Rate > 60.0 mL/min (>60); Glucose 110 mg/dL (80-110); HEMOLYSIS < 15 (0-50); Potassium 3.7 mmol/L (3.4-5.1); Sodium 134 mmol/L (137-145)
[2020-08-03 06:17] LABS: Procalcitonin 0.22 ng/mL (<0.5)
[2020-08-03 08:12] VITALS: O2SAT 99
[2020-08-03 08:20] VITALS: BP 147/73; PULSE 79; RESP 16; TEMP 36.6; O2SAT 99
--- NOTE | 2020-08-03 08:29 | PM.DS.1 ---
History of Present Illness History of Present Illness Date Patient Seen: 08/03/20 Time Patient Seen: 08:30 Chief complaint: COUGH FEVER Narrative: As per STEVAN Cantu: Mr. Donn Crystal is a 75-year-old male with past medical history significant for multiple myeloma (on oral chemotherapy), status post stem cell transplant, anticoagulated on apixaban, hypertension and nocturia who is sent to the emergency department with worsening cough, fevers chills and rigors. The patient has been seen at the [facility] with complaints of worsening symptoms over 6 days. Patient presented to the clinic for evaluation on 07/29 at which time was complaining of urinary tract symptoms with fever increased urination. The patient returned on 08/01 with increasing cough that is productive, fatigue, myalgias and fevers. He is started on Levaquin of which the patient has taken 1 dose. Today the patient is sent to the [facility] ER further evaluation with increasingly productive cough a fever 100 for and shaking rigors. The patient denies complaints of headaches or dizziness, nasal congestion or sore throat. He has had fevers and chills and now developed rigors. He denies complaints of chest pain or palpitations, he does endorse a history of heart murmur having had multiple echocardiograms. Reports no exertional dyspnea or shortness of breath at rest, only a persistent nagging productive cough. He denies pedis closing pulmonary disease and has had no wheezing. He endorses poor appetite with 5 lb weight loss in the last week. He denies epigastric or abdominal pain and has no nausea vomiting and denies constipation diarrhea. Patient has had frequent urination recently at night in small voids and denies hematuria urgency or burning. Upon arrival to the ER the patient's temperature 101.7?, heart rate of 103, blood pressure 180/78, respirations 12 saturating 98% on room air. Chest x-ray is obtained in the emergency department which shows worsening left lower lobe pneumonia when compared to film of 08/01/2020. Twelve lead EKG finds sinus rhythm rate of 95 with PACs, left atrial enlargement biphasic P-wave in V1 without ST or T-wave changes or evidence of infarct. Patient has low white count 3.4, hemoglobin of 12.5, hematocrit of 37.3 platelets 111. Is borderline sodium 134 with potassium 3.8. He is BUN is 23 with a creatinine at 1.24. His nonfasting glucose is 107. His liver functions are all with within normal limits with an albumin of 3.5. His lactic acid is 1.3 with procalcitonin 0.28. Total CK is 25 and troponin is less than 0.012. Respiratory PCR panel is negative. His COVID-19 screening is negative. In the ER the patient received a sepsis bolus of IV fluid receiving over 2300 mils, Tylenol 975, meropenem and vancomycin. The patient is admitted to the hospital with community-acquired pneumonia in an immunocompromised patient. Discharge Providers Provider Date of admission: 08/02/20 18:18 Discharge Date: 08/03/20 Primary care physician: Mateo Cruz MD Consults: 08/02/20 19:53 Consult to Discharge Planning Routine Comment: 08/02/20 20:14 Consult to Respiratory Therapy Evaluate & Treat Comment: Community-acquired Physician Instructions: Evaluate and treat Discharge provider: Abelardo Mariee DO Summary Hospital Course Discharge Diagnosis: 1. Community-acquired bacterial pneumonia, left lower lobe, present on admission, active. 2. Hypertension, chronic, stable 3. Multiple myeloma, chronic, stable. Hospital Course: 75-year-old male with past medical history significant for multiple myeloma (on oral chemotherapy), status post stem cell transplant, anticoagulated on apixaban, hypertension and nocturia who was sent to the emergency department with worsening cough, fevers chills and rigors is found to have worsening left lower lobe pneumonia. He was admitted with a very high pneumonia severity index score, at 123. The following morning he was feeling well and did not complain of shortness of breath, chest pain and had been afebrile since his arrival to the emergency room. He felt ready to be discharged home. He improved much more quickly than expected and was discharged home to complete course of cefdinir and azithromycin for 4 days. Exam Vital Signs (past 8 hours): - 08/03/20 05:30 08/03/20 08:12 Temperature 98.9 F Pulse Rate 69 Respiratory Rate 18 Blood Pressure 100/86 Pulse Oximetry 99 99 Oxygen Delivery Method Room Air Oxygen Flow Rate 0 Narrative Exam Narrative: GENERAL APPEARANCE: Well developed, well nourished, in no acute distress. CHEST: Normal AP diameter and normal contour without any kyphoscoliosis. LUNGS: Auscultation of the lungs revealed no wheezes. LLL rales. CARDIOVASCULAR: There was a regular rate and rhythm without any murmurs, gallops, rubs. Peripheral pulses were 2+ and symmetric. ABDOMEN: Soft and nontender with normal bowel sounds. No ascites was noted. MUSCULOSKELETAL: There was no tenderness or effusions noted. Muscle strength and tone were normal. EXTREMITIES: No cyanosis, clubbing or edema. NEUROLOGIC: Alert and oriented x 3. Normal affect. Gait was normal. No focal deficits. Objective Labs Result Diagrams: 08/02/20 16:07 08/03/20 05:23 Labs: Laboratory Results - last 24 hr 08/02/20 08/02/20 08/02/20 15:35 16:02 16:07 WBC 3.4 L RBC 3.57 L Hgb 12.5 L Hct 37.3 L MCV 104.7 H MCH 35.0 H MCHC 33.4 RDW 15.2 H Plt Count 111 L Neut % (Auto) 67.5 Lymph % (Auto) 20.8 L [place] % (Auto) 10.8 Eos % (Auto) 0.5 L Baso % (Auto) 0.4 Neut # (Auto) 2300 Lymph # (Auto) 700 L [place] # (Auto) 400 Eos # (Auto) 0 Baso # (Auto) 0 Sodium Potassium Chloride Carbon Dioxide BUN Creatinine Estimated GFR BUN/Creatinine Ratio Glucose Lactate Calcium Magnesium 2.0 Total Bilirubin AST ALT Alkaline Phosphatase Total Creatine Kinase CK-MB (CK-2) CK-MB (CK-2) Rel Index Troponin I Total Protein Albumin Globulin Albumin/Globulin Ratio Procalcitonin Urine Color Urine Appearance Urine pH Ur Specific [place] Urine Protein Urine Glucose (UA) Urine Ketones Urine Occult Blood Urine Nitrate Urine Bilirubin Urine Urobilinogen Ur Leukocyte Esterase Urine RBC Urine WBC Ur Squamous Epith Cells Amorphous Sediment Urine Bacteria Ur Culture Indicated? Chlamy pneumoniae PCR Not detected Adenovirus (PCR) Not detected B. pertussis DNA (PCR) Not detected B.parapertussis DNA PCR Not detected Coronavirus OC43 (PCR) Not detected Coronavirus HKU1 (PCR) Not detected Coronavirus 229E (PCR) Not detected SARS-CoV-2 (PCR) Not detected Coronavirus NL63 (PCR) Not detected Human Metapneumovir PCR Not detected Influenza Type A (PCR) Not detected Influenza Type B (PCR) Not detected M. pneumoniae (PCR) Not detected Parainfluenza 1 (PCR) Not detected Parainfluenza 2 (PCR) Not detected Parainfluenza 3 (PCR) Not detected Parainfluenza 4 (PCR) Not detected RSV (PCR) Not detected Entero/Rhino (PCR) Not detected 08/02/20 08/02/20 08/02/20 16:07 16:07 19:40 WBC RBC Hgb Hct MCV MCH MCHC RDW Plt Count Neut % (Auto) Lymph % (Auto) [place] % (Auto) Eos % (Auto) Baso % (Auto) Neut # (Auto) Lymph # (Auto) [place] # (Auto) Eos # (Auto) Baso # (Auto) Sodium 134 L Potassium 3.8 Chloride 102 Carbon Dioxide 23 BUN 23 H Creatinine 1.24 Estimated GFR 57.1 L BUN/Creatinine Ratio 18.5 Glucose 107 Lactate 1.3 Calcium 8.2 L Magnesium Total Bilirubin 0.4 AST 22 ALT 23 Alkaline Phosphatase 84 Total Creatine Kinase 25 L CK-MB (CK-2) TNP CK-MB (CK-2) Rel Index TNP Troponin I < 0.012 Total Protein 6.2 L Albumin 3.5 Globulin 2.7 Albumin/Globulin Ratio 1.3 Procalcitonin 0.29 Urine Color Yellow Urine Appearance Clear Urine pH 5.5 Ur Specific [place] 1.020 Urine Protein Trace H Urine Glucose (UA) Negative Urine Ketones Negative Urine Occult Blood 2+ H Urine Nitrate Negative Urine Bilirubin Negative Urine Urobilinogen 0.2 Ur Leukocyte Esterase Negative Urine RBC 1-5/hpf Urine WBC 0-1/hpf Ur Squamous Epith Cells 0-1 /hpf Amorphous Sediment 1+ Urine Bacteria None seen Ur Culture Indicated? Cult not indicated Chlamy pneumoniae PCR Adenovirus (PCR) B. pertussis DNA (PCR) B.parapertussis DNA PCR Coronavirus OC43 (PCR) Coronavirus HKU1 (PCR) Coronavirus 229E (PCR) SARS-CoV-2 (PCR) Coronavirus NL63 (PCR) Human Metapneumovir PCR Influenza Type A (PCR) Influenza Type B (PCR) M. pneumoniae (PCR) Parainfluenza 1 (PCR) Parainfluenza 2 (PCR) Parainfluenza 3 (PCR) Parainfluenza 4 (PCR) RSV (PCR) Entero/Rhino (PCR) 08/03/20 05:23 WBC RBC Hgb Hct MCV MCH MCHC RDW Plt Count Neut % (Auto) Lymph % (Auto) [place] % (Auto) Eos % (Auto) Baso % (Auto) Neut # (Auto) Lymph # (Auto) [place] # (Auto) Eos # (Auto) Baso # (Auto) Sodium 134 L Potassium 3.7 Chloride 107 Carbon Dioxide 21 L BUN 17 Creatinine 1.06 Estimated GFR > 60.0 BUN/Creatinine Ratio 16.0 Glucose 110 Lactate Calcium 7.6 L Magnesium Total Bilirubin AST ALT Alkaline Phosphatase Total Creatine Kinase CK-MB (CK-2) CK-MB (CK-2) Rel Index Troponin I Total Protein Albumin Globulin Albumin/Globulin Ratio Procalcitonin 0.22 Urine Color Urine Appearance Urine pH Ur Specific [place] Urine Protein Urine Glucose (UA) Urine Ketones Urine Occult Blood Urine Nitrate Urine Bilirubin Urine Urobilinogen Ur Leukocyte Esterase Urine RBC Urine WBC Ur Squamous Epith Cells Amorphous Sediment Urine Bacteria Ur Culture Indicated? Chlamy pneumoniae PCR Adenovirus (PCR) B. pertussis DNA (PCR) B.parapertussis DNA PCR Coronavirus OC43 (PCR) Coronavirus HKU1 (PCR) Coronavirus 229E (PCR) SARS-CoV-2 (PCR) Coronavirus NL63 (PCR) Human Metapneumovir PCR Influenza Type A (PCR) Influenza Type B (PCR) M. pneumoniae (PCR) Parainfluenza 1 (PCR) Parainfluenza 2 (PCR) Parainfluenza 3 (PCR) Parainfluenza 4 (PCR) RSV (PCR) Entero/Rhino (PCR) [facility] Medical History (Updated 08/02/20 @ 22:08 by STEVAN Cantu) Anticoagulated Frequent urination at night Hypertension Multiple myeloma Surgical History (Updated 08/02/20 @ 22:08 by STEVAN Cantu) History of stem cell transplant History of tonsillectomy Family History (Updated 08/02/20 @ 22:10 by STEVAN Cantu) Father Alcohol abuse Mother Cancer Brother Cancer Social History household members: spouse Smoking Status: Former smoker alcohol intake: current Discharge Plan Discharge Plan Patient Disposition: Home Provider Discharge Comment: You were admitted to the hospital with pneumonia. You improved quickly with antibiotics and are feeling well. You may again develop fever over the next 48 hours, but it should be less than 101.5. If higher than this please consider returning to the ER if you again do not feel well. You can take tylenol at home to help with fever symptoms as well. Please finish your course of antibiotics completely (4 days at home). Discharge orders & Medications Prescriptions: New azithromycin 250 mg tablet 250 mg PO DAILY 4 Days Qty: 4 RF: 0 cefdinir 300 mg capsule 300 mg PO BID 4 Days Qty: 8 RF: 0 Continued valacyclovir 500 mg tablet 500 mg PO QPM RF: 0 amlodipine 10 mg tablet 10 mg PO QAM RF: 0 gabapentin 300 mg capsule 300 mg PO QPM RF: 0 Revlimid 10 mg capsule 10 mg PO QPM RF: 0 Eliquis 5 mg tablet 5 mg PO BID RF: 0 Discontinued Eliquis 5 mg tablet RF: 0 levofloxacin 500 mg tablet 500 mg PO DAILY Qty: 7 RF: 0 Follow up/Referrals: Mateo Cruz MD [Primary Care Provider] - Diet/Activity/Treatments Diet: Diet as Tolerated Activity: As tolerated Visit Report/Discharge Packet Instructions: Pneumonia-Adult, Azithromycin, Cefdinir Discharge Data Primary Care Provider: Mateo Cruz
[2020-08-03 09:00] VITALS: BP 183/115; PULSE 70; RESP 16; TEMP 36.1; O2SAT 99
--- NOTE | 2020-08-03 09:15 | PC.NURSE ---
Pt reports taking personal medications this am, he reports taking the following: acyclovir, multivitamin, calcium magnesium, eliquis, amlodipine. Held all morning medications.
--- NOTE | 2020-08-03 11:18 | PC.NURSE ---
Pt discharge education given to pt and spouse, discussed- pneumonia, medications, f/u appts, s/s of stroke, worsening symptoms and reasons to seek medical attention. All questions answered. IV removed, intact, tolerated well. Pt dressed independently. Assisted to POV via w/c accompanied by RN.
--- NOTE | 2020-08-03 13:04 | CM.IDA ---
Initial DCP Assessment Note Patient is an 75 yo male, resident of [facility]. Patient presents with cough fever, rigors, found to have community acquired paranoia. PMH includes multiple myeloma, currently on oral chemotherapy. PCP: Mateo Cruz Payer: PATSY/MAGY out of [facility] Reviewed chart, patient improved very quickly on treatment, discharged home on po abx; ambulating in his room and in the hallway, ready to DC home this morning. RN provided DC information to patient and spouse. No needs were identified from this FAMILY DEVELOPMENT SPECIALIST Plan: DC home w/family and close outpatient f/u LEANN Bautista
== END 2020-08-03 11:20 | disposition home or self-care (01) | DRG 194 ==
LOC: ED 15:30 → AC 18:19
PROVIDERS: Nurse Practitioner Adult Health; Admitting Provider Internal Medicine; Emergency Provider Emergency Medicine; PCP Family Medicine; Referring Provider Emergency Medicine; Visit Provider Internal Medicine
DX: J15.9 Unspecified bacterial pneumonia (principal); C90.00 Multiple myeloma not having achieved remission; D84.89 Other immunodeficiencies; Z94.84 Stem cells transplant status; Z79.01 Long term (current) use of anticoagulants; I10 Essential (primary) hypertension; R35.1 Nocturia; Z87.891 Personal history of nicotine dependence; Z20.822 Contact with and (suspected) exposure to COVID-19; R31.9 Hematuria, unspecified; R79.9 Abnormal finding of blood chemistry, unspecified
CPT/HCPCS: 36415; 71045; 71046; 80048; 80053; 81001; 82274; 82550; 83605; 83735; 84145; 84484; 85007; 85025; 87040; 87070; 87086; 87205; 87633; 93005; 94667; 96361; 96365; 99284; U0003; J0696; J2185